=== PATIENT | female | born 1985 | race Caucasian/White ===

== ENCOUNTER 2017-04-25 08:30 | Emergency (ER) | payer MEDICAID ==
[2014-01-20 05:33] VITALS: BMI 39.6
[~2017-04-25 08:30] MED LIST: FERROUS SULFAT325 MG PO; IBUPROFEN800 MG; PERCOCET 10/3251 TA1 PO; PRENATAL COMPLE1 TAB PO; TUMS500 MG PO
== END 2017-04-25 10:32 | disposition home or self-care (01) ==
LOC: D.ER 08:30
DX: M54.5 Low back pain (principal); F17.200 Nicotine dependence, unspecified, uncomplicated

== ENCOUNTER 2018-10-25 17:18 | Emergency (ER) | payer SELFPAY ==
[~2018-10-25] VITALS: Ht 172.7 cm; Wt 113.6 kg
[2018-10-25 17:33] VITALS: Ht 172.7 cm; Wt 113.6 kg
[2018-10-25] MEDS ORDERED: TORADOL10 MG PO (18:53)
[2018-10-25 19:14] VITALS: BP 116/62
== END 2018-10-25 19:15 | disposition home or self-care (01) ==
LOC: D.ER 17:18
DX: R07.9 Chest pain, unspecified (principal); S60.222A Contusion of left hand, initial encounter; Y93.89 Activity, other specified; Y92.410 Unspecified street and highway as the place of occurrence of the external cause; S46.812A Strain of other muscles, fascia and tendons at shoulder and upper arm level, left arm, initial encounter

== ENCOUNTER 2019-05-15 19:46 | Observation (INO) | payer BC ==
[~2019-05-15] VITALS: Ht 172.7 cm; Wt 113.4 kg
[~2019-05-15 19:46] MED LIST changes: +TORADOL10 MG PO
[2019-05-15 20:10] LABS: BASOPHILS 0.1 % (0-2); EOSINOPHILS 2.6 % (0-7); HEMATOCRIT 38.9 % (36.0-48.0); HEMOGLOBIN 13.4 g/dL (12-16); IMMATURE GRANULOCYTES 0.3 % (0-5); MCH 30.5 pg (26.0-34.0); MCHC 34.4 g/dL (31.0-37.0); MCV 88.6 fL (80.0-100.0); MEAN PLATELET VOLUME 8.8 fL (7.4-10.4); MONOCYTES 4.7 % (2-11); NEUTROPHILS 60.3 % (40-80); PLATELET COUNT 271 10x3/uL (130-400); RBC 4.39 10x6/uL (4.00-5.40); RDW 13.8 % (11.5-14.5); WBC 9.6 10x3/uL (4.8-10.8)
[2019-05-15 20:19] LABS: CALC OSMOLALITY 275 mosm/kg (275-300); CALCIUM 9.4 mg/dL (8.5-10.1); CARBON DIOXIDE 25.2 mmol/L (21.0-32.0); CHLORIDE - SERUM 103 mmol/L (98-107); CREATININE - SERUM 0.7 mg/dL (0.6-1.3); GLUCOSE 105 mg/dL (74-106); POTASSIUM - SERUM 3.6 mmol/L (3.5-5.1); SODIUM 138 mmol/L (136-145); UREA NITROGEN 13 mg/dL (7-18); eGFR NON AFRICAN AMERICAN > 90 mL/min (90-120)
[2019-05-15 20:28] LABS: ALBUMIN 3.4 g/dL (3.4-5.0); ALKALINE PHOSPHATASE 87 U/L (46-116); ALT (SGPT) 31 U/L (10-68); AMYLASE - SERUM 30 U/L (25-115); BILIRUBIN - TOTAL 0.31 mg/dL (0.2-1.3); LIPASE 108 U/L (73-393); PROTEIN - SERUM 7.6 g/dL (6.4-8.2); TROPONIN-I < 0.017 ng/mL (0.000-0.060)
--- NOTE | 2019-05-15 21:10 | NUR ---
PT AMBULATED TO RESTROOM INDEPENDENTLY.
[2019-05-15 21:15] LABS: APPEARANCE CLEAR (CLEAR); BILIRUBIN NEGATIVE (NEGATIVE); COLOR YELLOW (YELLOW); GLUCOSE NEGATIVE (NEGATIVE); KETONE NEGATIVE (NEGATIVE); NITRITE NEGATIVE (NEGATIVE); PROTEIN NEGATIVE (NEGATIVE); SPECIFIC GRAVITY 1.025 (1.005-1.020); UROBILINOGEN NORMAL (NORMAL)
[2019-05-15 21:20] LABS: BACTERIA FEW /hpf (NEGATIVE); EPITHELIAL CELLS 0-5 /hpf (0-5); RED CELLS - URINE NONE SEEN /hpf (0-5); WHITE CELLS - URINE 0-5 /hpf (NEGATIVE)
[2019-05-15 22:51] LABS: UDS - AMPHET NEGATIVE QUAL (NEGATIVE); UDS - BARB NEGATIVE QUAL (NEGATIVE); UDS - BENZO NEGATIVE QUAL (NEGATIVE); UDS - COCAINE NEGATIVE QUAL (NEGATIVE); UDS - OPIATE NEGATIVE QUAL (NEGATIVE); UDS - PCP NEGATIVE QUAL (NEGATIVE); UDS - THC POSITIVE QUAL (NEGATIVE)
[2019-05-16 00:45] VITALS: BP 115/58; BMI 38.1
--- NOTE | 2019-05-16 01:01 | NUR ---
RECEIVED PT FROM ER VIA WHEELCHAIR. A/O WITH NO SIGNS OF DISTRESS. IV TO THE RT AC WITH NO REDNESS OR SWELLING NOTED. COMPLAINING OF 4/10 PAIN IN LOWER QUANDRANTS OF ABDOMEN AND TENDER UPON PALPATION. GAVE SPRITE PER PATIENT REQUEST. DENIES NO OTHER NEEDS AT THIS TIME. CONTINUE PLAN OF CARE.
[2019-05-16 04:00] VITALS: BP 96/60
--- NOTE | 2019-05-16 04:20 | NUR ---
I have reviewed this patient and I concur with the Shift Assessment completed by the Licensed Practical Nurse today this shift.
[2019-05-16 07:27] LABS: HCG SERUM NEGATIVE (NEGATIVE)
[2019-05-16 08:29] VITALS: BP 114/64
[2019-05-16 09:38] LABS: BASOPHILS 0.1 % (0-2); EOSINOPHILS 2.6 % (0-7); HEMATOCRIT 35.6 % (36.0-48.0); IMMATURE GRANULOCYTES 0.3 % (0-5); MCH 30.2 pg (26.0-34.0); MCHC 33.7 g/dL (31.0-37.0); MCV 89.4 fL (80.0-100.0); MEAN PLATELET VOLUME 8.7 fL (7.4-10.4); MONOCYTES 5.8 % (2-11); NEUTROPHILS 54.2 % (40-80); PLATELET COUNT 239 10x3/uL (130-400); RBC 3.98 10x6/uL (4.00-5.40); RDW 13.9 % (11.5-14.5)
[2019-05-16 09:46] LABS: CALC OSMOLALITY 275 mosm/kg (275-300); CALCIUM 8.6 mg/dL (8.5-10.1); CARBON DIOXIDE 23.9 mmol/L (21.0-32.0); CHLORIDE - SERUM 104 mmol/L (98-107); CREATININE - SERUM 0.7 mg/dL (0.6-1.3); GLUCOSE 93 mg/dL (74-106); POTASSIUM - SERUM 4.1 mmol/L (3.5-5.1); SODIUM 138 mmol/L (136-145); UREA NITROGEN 12 mg/dL (7-18); eGFR NON AFRICAN AMERICAN > 90 mL/min (90-120)
[2019-05-16 09:56] LABS: WBC 6.9 10x3/uL (4.8-10.8)
[2019-05-16 12:16] VITALS: Ht 172.7 cm; Wt 113.4 kg
[2019-05-16 12:52] VITALS: BP 123/61
[2019-05-16 14:14] LABS: BASOPHILS 0.3 % (0-2); EOSINOPHILS 2.6 % (0-7); HEMATOCRIT 37.7 % (36.0-48.0); HEMOGLOBIN 12.6 g/dL (12-16); IMMATURE GRANULOCYTES 0.1 % (0-5); MCH 29.9 pg (26.0-34.0); MCHC 33.4 g/dL (31.0-37.0); MCV 89.3 fL (80.0-100.0); MEAN PLATELET VOLUME 8.8 fL (7.4-10.4); MONOCYTES 5.5 % (2-11); NEUTROPHILS 56.5 % (40-80); PLATELET COUNT 272 10x3/uL (130-400); RBC 4.22 10x6/uL (4.00-5.40); RDW 13.9 % (11.5-14.5)
[2019-05-16 18:14] VITALS: BP 113/61
[2019-05-16] MEDS ORDERED: PERCOCET 5-3251 TAB PO (18:15)
--- NOTE | 2019-05-16 18:49 | NUR ---
DISCHARGE INSTRUCTIONS WITH PT.STATES UNDERSTANDING. IV DCD WITH CATH TIP INTACT. PT WISHES TO WAIT ON OBGYN TO ROUND AGAIN BEFORE SHE GOES HOME
--- NOTE | 2019-05-16 19:26 | NUR ---
LEFT UNIT AMBULATORY WITH FAMILY. PT DECLINES WHEELCHAIR. SHE IS GOING HOME
== END 2019-05-16 19:26 | disposition home or self-care (01) ==
LOC: D.ER 19:46 → D.MS 23:49 → OBSVTIME 23:49 → D.MS 23:49
PROVIDERS: Emergency Medicine; Family Medicine; Student in an Organized Health Care Education/Training Program; ADMIT Family Medicine; ATTEND Family Medicine
DX: R10.30 Lower abdominal pain, unspecified (principal); F31.9 Bipolar disorder, unspecified; F12.90 Cannabis use, unspecified, uncomplicated; F17.203 Nicotine dependence unspecified, with withdrawal; F32.9 Major depressive disorder, single episode, unspecified